=== PATIENT | male | born 1980 | race Caucasian/White ===

== ENCOUNTER 2018-11-06 23:37 | Emergency (ER) | payer BC, SELFPAY ==
[2018-11-06] MEDS ORDERED: Famotidine 20 MG TAB ONE (23:51)
[2018-11-06] MEDS ORDERED: methylPREDNISolone Sod Succ/PF 125 MG/2 ML VIAL ONE (23:51)
[2018-11-07] MEDS ORDERED: Albuterol Sulfate 2.5 mg/3 ml Neb ONE (00:16)
== END 2018-11-07 00:52 | disposition home or self-care (01) ==
LOC: NAV ERS 23:37
DX: J30.81 Allergic rhinitis due to animal (cat) (dog) hair and dander (principal); F17.210 Nicotine dependence, cigarettes, uncomplicated; Z79.899 Other long term (current) drug therapy
CPT/HCPCS: 94640; 96372; J2930; J7611